=== PATIENT | female | born 1985 | race Two or more races ===

== ENCOUNTER 2019-03-05 11:21 | Emergency (ER) | payer MEDICAID ==
[~2019-03-05] VITALS: Ht 152.4 cm; Wt 74.8 kg
[2019-03-05 12:23] LABS: Urine Bacteria MOD /hpf (None Seen); Urine Blood Negative /uL (Negative); Urine Mucus FEW (None Seen); Urine WBC 2 /hpf (0 - 5)
[2019-03-05 12:47] VITALS: BP 128/77
== END 2019-03-05 14:20 | disposition home or self-care (01) ==
LOC: ER 11:24
DX: N39.0 Urinary tract infection, site not specified (principal); B37.3 Candidiasis of vulva and vagina; H61.23 Impacted cerumen, bilateral; Z90.49 Acquired absence of other specified parts of digestive tract
CPT/HCPCS: 81001; 81025

== ENCOUNTER 2021-11-15 15:54 | Inpatient (IN) | payer MEDICAID ==
[~2021-11-15] VITALS: Ht 152.4 cm; Wt 82.8 kg
[2021-11-15 21:05] LABS: Basophils # (auto) 0 10 ^3/uL (0-0.2); Monocytes # (auto) 0.4 10 ^3/uL (0-1.3); Neutrophils # (auto) 4.3 10 ^3/uL (1.6-8.6)
[2021-11-15 21:06] LABS: Basophils % (auto) 0.3 % (0.0-2.0); Eosinophils # (auto) 0.4 10 ^3/uL (0-0.8); Hematocrit 48.4 % (36.0-46.0); Hemoglobin 15.9 g/dL (12.2-16.2); Lymphocytes # (auto) 1.8 10 ^3/uL (0.4-5.4); Lymphocytes % (auto) 25.8 % (10.0-50.0); Mean Corpuscular Hemoglobin 26.8 pg (28.0-32.0); Mean Corpuscular Hgb Conc. 32.8 g/dL (32.0-36.0); Mean Corpuscular Volume 81.6 fL (80.0-100.0); Monocytes % (auto) 6.3 % (0.0-12.0); Neutrophils % (auto) 61.6 % (37.0-80.0); Red Blood Cells 5.94 10^6/uL (4.0-5.20); Red Cell Distribution Width 15.1 % (11.8-14.3)
[2021-11-15 21:30] LABS: Albumin 3.5 g/dL (3.4-5.0); Calcium 9.6 mg/dL (8.5-10.1); Potassium 4.3 mmol/L (3.5-5.1)
[2021-11-15 21:39] LABS: BUN/Creatinine Ratio 22.1; Bilirubin, Total 0.3 mg/dL (0.2-1.0); Total Protein 8.2 g/dL (6.4-8.2)
[2021-11-16] MEDS ORDERED: HYDROcodone-ACET 5/325MG TAB PO ONE (02:45)
[2021-11-16 03:43] LABS: INR 0.99 (0.9-1.15); Partial Thromboplastin Time 26.2 sec (23.6-33.0)
[2021-11-16 04:45] LABS: Urine Bacteria FEW /hpf (None Seen); Urine Blood Negative /uL (Negative); Urine Mucus FEW (None Seen); Urine Specific Gravity 1.022 (1.001-1.035); Urine WBC 5 /hpf (0 - 5)
[2021-11-16] MEDS ORDERED: TEMAZEPAM 15 MG CAP PO PRN (04:45)
[2021-11-16] MEDS ORDERED: ACETAMINOPHEN 325 MG TAB PO PRN (04:45)
[2021-11-16] MEDS ORDERED: ONDANSETRON HCL 4 MG/2 ML VIAL IV PRN (04:45)
[2021-11-16 08:40] VITALS: BP 144/87
[2021-11-16] MEDS: ENOXAPARIN SOD 40 MG/0.4 ML SYRINGE SC SCH (08:52)
[2021-11-16] MEDS: PANTOPRAZOLE 40 MG TAB PO SCH (08:52)
[2021-11-16 09:30] VITALS: BP 144/87
[2021-11-16] MEDS: HYDROcodone-ACET 5/325MG TAB PO PRN ×2 (09:34→17:47)
[2021-11-16 11:24] VITALS: BP 125/73
[2021-11-16 17:00] VITALS: BP 140/87
[2021-11-16 22:00] VITALS: BP 138/87
[2021-11-17 05:00] VITALS: BP 140/86
[2021-11-17 05:36] LABS: Basophils # (auto) 0 10 ^3/uL (0-0.2); Basophils % (auto) 0.5 % (0.0-2.0); Eosinophils # (auto) 0.4 10 ^3/uL (0-0.8); Eosinophils % (auto) 7.2 % (0.0-7.0); Hematocrit 41.4 % (36.0-46.0); Lymphocytes # (auto) 1.6 10 ^3/uL (0.4-5.4); Lymphocytes % (auto) 26.7 % (10.0-50.0); Mean Corpuscular Hemoglobin 27.7 pg (28.0-32.0); Mean Corpuscular Volume 81.4 fL (80.0-100.0); Monocytes # (auto) 0.5 10 ^3/uL (0-1.3); Monocytes % (auto) 7.9 % (0.0-12.0); Neutrophils # (auto) 3.5 10 ^3/uL (1.6-8.6); Neutrophils % (auto) 57.7 % (37.0-80.0); Nucleated Red Blood Cells % 0.1 %; Red Blood Cells 5.08 10^6/uL (4.0-5.20); Red Cell Distribution Width 14.5 % (11.8-14.3); White Blood Cell 6.1 10^3/uL (4.4-10.8)
[2021-11-17 05:50] LABS: Albumin 2.9 g/dL (3.4-5.0); Calcium 8.4 mg/dL (8.5-10.1); Potassium 3.6 mmol/L (3.5-5.1)
[2021-11-17 05:56] LABS: BUN/Creatinine Ratio 25.6; Bilirubin, Total 0.4 mg/dL (0.2-1.0); Total Protein 6.8 g/dL (6.4-8.2)
[2021-11-17] MEDS: ENOXAPARIN SOD 40 MG/0.4 ML SYRINGE SC SCH (08:14)
[2021-11-17] MEDS: PANTOPRAZOLE 40 MG TAB PO SCH (08:14)
[2021-11-17 09:00] VITALS: BP 141/88
[2021-11-17] MEDS: HYDROcodone-ACET 5/325MG TAB PO PRN (11:43)
[2021-11-17 13:00] VITALS: BP 145/91
[2021-11-17 17:00] VITALS: BP 137/85
[2021-11-17] MEDS: METOCLOPRAMIDE HCL 10 MG TAB PO SCH (21:15)
[2021-11-17] MEDS: SODIUM CHLORIDE 0.9% 1,000 ML IV SCH (21:17)
[2021-11-17 22:19] VITALS: BP 138/72
[2021-11-18 05:12] VITALS: BP 113/68
[2021-11-18] MEDS: SODIUM CHLORIDE 0.9% 1,000 ML IV SCH ×2 (05:51→09:43)
[2021-11-18] MEDS: METOCLOPRAMIDE HCL 10 MG TAB PO SCH (05:51)
[2021-11-18 06:48] LABS: BUN/Creatinine Ratio 25.9; Calcium 8.4 mg/dL (8.5-10.1); Potassium 3.6 mmol/L (3.5-5.1)
[2021-11-18 06:50] LABS: Basophils # (auto) 0 10 ^3/uL (0-0.2); Basophils % (auto) 0.2 % (0.0-2.0); Eosinophils # (auto) 0.4 10 ^3/uL (0-0.8); Eosinophils % (auto) 6.9 % (0.0-7.0); Hematocrit 42.1 % (36.0-46.0); Hemoglobin 14.2 g/dL (12.2-16.2); Lymphocytes # (auto) 1.4 10 ^3/uL (0.4-5.4); Lymphocytes % (auto) 26.2 % (10.0-50.0); Mean Corpuscular Hemoglobin 27.4 pg (28.0-32.0); Mean Corpuscular Hgb Conc. 33.7 g/dL (32.0-36.0); Mean Corpuscular Volume 81.2 fL (80.0-100.0); Monocytes # (auto) 0.4 10 ^3/uL (0-1.3); Monocytes % (auto) 6.9 % (0.0-12.0); Neutrophils # (auto) 3.2 10 ^3/uL (1.6-8.6); Neutrophils % (auto) 59.8 % (37.0-80.0); Red Blood Cells 5.18 10^6/uL (4.0-5.20); Red Cell Distribution Width 14.3 % (11.8-14.3); White Blood Cell 5.4 10^3/uL (4.4-10.8)
[2021-11-18] MEDS ORDERED: METH4PAK PO (09:46)
[2021-11-18] MEDS: ENOXAPARIN SOD 40 MG/0.4 ML SYRINGE SC SCH (09:58)
[2021-11-18] MEDS: PANTOPRAZOLE 40 MG TAB PO SCH (09:58)
[2021-11-18] MEDS ORDERED: DexAMETHasone INJECTION 10 MG in D5W 5% 50 ML IV SCH (10:00)
[2021-11-18] MEDS ORDERED: PANT40TA2 PO (10:37)
[2021-11-18 11:01] VITALS: BP 131/87
== END 2021-11-18 13:08 | disposition home or self-care (01) | DRG 663 ==
LOC: ER 15:54 → OVERFLOW 11-16 04:41 → MERGE 11-16 04:41 → CENTRAL 11-16 08:19
PROVIDERS: ADMIT Nurse Practitioner; ATTEND Internal Medicine Pulmonary Disease
DX: D75.1 Secondary polycythemia (principal); E66.9 Obesity, unspecified; F17.200 Nicotine dependence, unspecified, uncomplicated; G43.001 Migraine without aura, not intractable, with status migrainosus; Z20.822 Contact with and (suspected) exposure to COVID-19; Z90.49 Acquired absence of other specified parts of digestive tract; Z68.35 Body mass index [BMI] 35.0-35.9, adult
CPT/HCPCS: 36415; 70450; 71045; 76705; 80048; 80053; 81001; 82668; 83021; 83615; 84702; 85025; 85610; 85660; 85730; 86850; 86900; 86901; G0378; J1100; J7060